=== PATIENT | female | born 1965 | race Caucasian/White ===

== ENCOUNTER 2017-01-07 16:02 | Emergency (ER) | payer OTHER ==
[2017-01-07 18:01] VITALS: BP 171/88
[2017-01-07] MEDS ORDERED: Acetaminophen/HYDROcodone 325-5 MG Tab PO ONE (18:08)
--- NOTE | 2017-01-07 18:14 | EDM.PDOC ---
ED HPI Trauma - General Chief Complaint: Lower Extremity Injury/Pain Stated Complaint: RT ANKLE HURT Time Seen by Provider: 01/07/17 18:00 Source: Reports: Patient - History of Present Illness INITIAL COMMENTS - FREE TEXT/NARRATIVE: Kaya presents today for right ankle injury and pain. She was tripped by a Labrador retriever, she fell with a twisting motion to her right ankle. She is now unable to bear weight. Symptom Onset Date: 01/07/17 Symptom Onset Time: 15:00 Occurred When: just prior to arrival Occurred Where: home Method of Injury: fall Severity: moderate Pain/Injury Location: Reports: lower extremity, right Consciousness: Reports: no loss of consciousness Associated Symptoms: Reports: denies other symptoms Allergies/ADRs: Allergies No Known Allergies Allergy (Verified 01/07/17 17:54) Home Medications: Ambulatory Orders NK [No Known Home Meds] 01/07/17 [Confirmed 01/07/17] Past Medical History - Past Health History Medical/Surgical History: Denies Medical/Surgical History Cardiovascular History: Reports: None Gastrointestinal History: Reports: None Musculoskeletal History: Reports: None Neurological History: Reports: None Social & Family History - Family History Family Medical History: Noncontributory - Tobacco Use Smoking Status *Q: Never Smoker Review of Systems - Review of Systems Review Of Systems: See Below Constitutional: Reports: no symptoms Respiratory: Reports: No Symptoms. Denies: Shortness of Breath, Wheezing, Cough Cardiovascular: Reports: no symptoms. Denies: chest pain, edema, irregular heart rate, palpitations GI/Abdominal: Reports: No symptoms Genitourinary: Reports: no symptoms Musculoskeletal: Reports: other (Right ankle pain, edema) Skin: Reports: bruising, other (to right ankle) Neurological: Reports: No Symptoms Trauma Exam - Physical Exam Exam: See Below Exam Limited By: No limitations General Appearance: Reports: alert, WD/WN, no apparent distress Head: Reports: atraumatic Eyes: bilateral eye: PERRL Respiratory Exam: Reports: no respiratory distress, lungs clear, normal breath sounds, no accessory muscle use, chest non-tender Cardiovascular: Reports: normal peripheral pulses, regular rate, rhythm, no edema, no gallop, no murmur, no rub Extremities: Reports: pain with movement, tenderness, unable to bear weight, other (right ankle) Neurologic: Reports: tail board man II-XII nml as tested, no motor/sensory deficits, alert , normal mood/affect, oriented x 3 Skin: Reports: Normal color, Warm/dry, Other (Slight bruising noted to right ankle) Course - Vital Signs Last Recorded V/S: Last Vital Signs Temp 36.7 C 01/07/17 17:59 Pulse 77 01/07/17 17:59 Resp 14 01/07/17 17:59 BP 171/88 H 01/07/17 17:59 Pulse Ox 97 01/07/17 17:59 - Orders/Labs/Meds Orders: Active Orders 24 hr Category Date Time Status Ankle Min 3V Rt [CR] Stat Exams 01/07/17 18:07 Taken Meds: Medications Discontinued Medications Generic Name Dose Route Start Last Admin Trade Name Viki PRN Reason Stop Dose Admin Hydrocodone Bitart/Acetaminophen 1 tab 01/07/17 18:08 01/07/17 18:16 [place] 325-5 Mg PO 01/07/17 18:09 1 tab ONETIME ONE Administration - Radiology Interpretation Free Text/Narrative:: Right ankle x-ray completed. Medial malleolar nondisplaced fracture. Departure - Departure Time of Disposition: 18:56 Disposition: Home, Self-Care 01 Condition: good Clinical Impression: Medial malleolar fracture Instructions: Cast or Splint Care, Chex-ab-Magu, Crutch Use, [id number] Forms: ED Department Discharge Additional Instructions: Patient referred to see Dr. Dalila Milligan tomorrow. She will not bear weight on her injured ankle. She can use ibuprofen 800mg PO three times a day as needed with use of hydrocodone as needed. - My Orders Last 24 Hours: My Active Orders 01/07/17 18:07 Ankle Min 3V Rt [CR] Stat - Assessment/Plan Last 24 Hours: My Active Orders 01/07/17 18:07 Ankle Min 3V Rt [CR] Stat
--- NOTE | 2017-01-08 08:47 | CR ---
Right ankle. Findings: Nondisplaced medial malleolar fracture appears faint. Fibula is intact.
== END 2017-01-07 19:17 | disposition home or self-care (01) ==
LOC: JP.ED 16:02
DX: S82.54XA Nondisplaced fracture of medial malleolus of right tibia, initial encounter for closed fracture (principal); W01.10XA Fall on same level from slipping, tripping and stumbling with subsequent striking against unspecified object, initial encounter
CPT/HCPCS: 73610; 99284; A9270

== ENCOUNTER 2019-09-11 07:48 | Day surgery (SDC) | payer OTHER ==
[2019-09-11] MEDS ORDERED: Propofol 200 MG/20 ML SDV ONE (08:04)
[2019-09-11] MEDS ORDERED: fentaNYL 100 MCG/2 ML SDV ONE (08:04)
[2019-09-11] MEDS ORDERED: Midazolam 1 MG/ML 2 ML SDV ONE (08:04)
[2019-09-11] MEDS ORDERED: Sodium Chloride 0.9% 1,000 ML IV SCH (08:45)
[2019-09-11 11:14] VITALS: BP 114/72; PULSE 60
--- NOTE | 2019-09-11 13:54 | OR ---
DATE OF PROCEDURE: 09/11/2019 SURGEON: Renaldo Ch MD PROCEDURE: Colonoscopy. FINDINGS: Normal colonoscopy. COMPLICATIONS: None. HABILITATION WORKER: None. PREOPERATIVE DIAGNOSIS: Screening colonoscopy. POSTOPERATIVE DIAGNOSIS: Screening colonoscopy. RISKS: Risks, benefits, alternatives, and limitations including, but not limited to infection, bleeding, and perforation were explained to the patient, who wished to proceed. PROCEDURE IN DETAIL: The patient was placed in a left lateral decubitus position. Digital rectal exam was performed without abnormality. The scope was introduced and advanced atraumatically to the ileocecal valve. The scope was brought back through the ascending, transverse, descending colon, and retroflexed. No evidence of old or new blood. No masses. No polyps. No diverticulitis. No colitis. No abnormalities. Prep was moderately acceptable. Some liquid and solid stool remaining, however, greater than 90% of the luminal surface could be seen. The patient tolerated the procedure well. Renaldo Ch MD /[id number]
== END 2019-09-11 10:50 | disposition home or self-care (01) ==
LOC: JP.SDS 07:48
PROVIDERS: ATTEND Surgery
DX: Z12.11 Encounter for screening for malignant neoplasm of colon (principal); K21.9 Gastro-esophageal reflux disease without esophagitis
CPT/HCPCS: 45378; J2250; J2704; J3010; J7030